=== PATIENT | male | born 1945 | race Caucasian/White ===

== ENCOUNTER 2017-05-29 11:58 | Inpatient (IN) ==
--- NOTE | 2017-05-29 12:20 | Emergency Department Note ---
Disposition Clinical Impression: Cellulitis Qualifiers: Site of cellulitis: extremity Site of cellulitis of extremity: upper extremity Laterality: left Qualified Code(s): L03.114 - Cellulitis of left upper limb Abscess of skin or subcutaneous tissue Qualifiers: Site of cutaneous abscess: extremity Site of cutaneous abscess of extremity: hand Laterality: left Qualified Code(s): L02.512 - Cutaneous abscess of left hand Disposition: Admitted As Inpatient Condition: Good Referrals: Ky Cisneros MD [Primary Care Provider] - Forms: ED Satisfaction Letter Time of Disposition: 14:41 Skin/Abscess/FB HPI Chief complaint: ED Skin/Abscess/Foreign Body Stated complaint: finger wound Time Seen by Provider: 05/29/17 12:06 Source: patient Limitations: no limitations Nursing Notes Reviewed: Yes Vital Signs Reviewed: Yes HPI Narrative: Mr. Barton, a 72yo male, presents from home for evaluation of worsening infection of his left index finger. Sometime last week, he was reportedly bitten by a spider over the MCP knuckle of his left index finger. 5 days ago, he presented to his primary care physician who prescribed him by mouth cephalexin and Bactrim. The swelling of the left MCP is surrounding erythema has become progressively worse and now includes the dorsum of his hand. 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 PMH: Diabetes, hypertension, hyperlipidemia No current steroid or recent steroid use. ROS: Positive: As above Negative: Fever, chills, nausea, vomiting, pain with left wrist movement Home Medications Medication Instructions Recorded Confirmed Amlodipine Besylate 2.5 mg PO DAILY 05/29/17 05/29/17 Enalapril Maleate [Vasotec] 20 mg PO DAILY 05/29/17 05/29/17 Gabapentin [Neurontin] 1,200 mg PO TID 05/29/17 05/29/17 Meloxicam [Meloxicam] 15 mg PO DAILY 05/29/17 05/29/17 Metformin HCl [Glucophage] 1,000 mg PO BID 05/29/17 05/29/17 OxyCODONE/APAP 10/325 [Percocet 1 tab PO Q6H PRN 05/29/17 05/29/17 10/325 MG] Rosuvastatin Calcium [Crestor] 10 mg PO DAILY 05/29/17 05/29/17 Trazodone HCl 200 mg PO HS 05/29/17 05/29/17 Allergies Allergy/AdvReac Type Severity Reaction Status Date / Time No Known Allergies Allergy Verified 05/29/17 12:00 All systems ED: reviewed and negative except as stated. Review of Systems: As Per HPI Past Medical History - Past Medical History Medical history: Reports: diabetes, hyperlipidemia, hypertension, kidney stones Surgical history: Reports: non-contributory Psychiatric history: Reports: no psych history - Social History Smoking Status: Current every day smoker Smokeless Tobacco Status: No Alcohol use: Reports: occasionally Drug use: Reports: none Physical Exam Vital Signs Reviewed General: Patient is alert, oriented, and in no acute distress. HEENT: No facial asymmetry. Head is normocephalic and atraumatic. PERRLA, EOMI. oral mucosa moist. Trachea midline. Cardiovascular: Heart regular rate and rhythm without clicks, rubs, gallops, or murmurs. No JVD. PMI nondisplaced. Bilateral radial pulses 2/4 and equal. Respiratory: Symmetric chest rise with good respiratory effort. Bilateral breath sounds are clear without wheezing, crackles, or rhonchi. Abdomen: Obese. Bowel sounds present normoactive x-4 quadrants. Abdomen is soft, nondistended, and nontender. Musculoskeletal: Spontaneously moving all extremities. Pain with flexion of left index finger. Pain in dorsum of left hand with flexion of left #5, 4, 3 fingers. Neuro: Alert and oriented 4 Sensation light touch intact. Skin: Erythema and swelling to dorsum of left hand and extending distally along the left index finger with a sharp over the first MCP. No current drainage. Psych: Patient's affect is appropriate for situation. - General Limitations: no limitations General appearance: alert, in no apparent distress Course Course Narrative: Will x-ray left hand looking frosty myelitis. Will ultrasound cellulitic area looking for a drainable abscess. Anticipate admission for IV antibiotics and consultation with orthopedic hand surgery. Blood cultures obtained. Aerobic and anaerobic cultures obtained from abscess drainage. Will place patient on empiric vancomycin and admitted. I discussed the patient with the admitting hospitalist agrees to accept the patient continued evaluation and management. Discussed the patient with on-call orthopedics was in agreement with the current plan of care. Will attempt to pack the patient's abscess; otherwise he has no additional questions or concerns at this time. Hand X-Ray 05/29/17 12:17 IMPRESSION: Soft-tissue swelling with no acute or focal bony abnormality seen. D/ / Swathi Pugh Cha, MD / Swathi Pugh Cha, MD Interpreting Provider: Swathi Pugh Cha, MD Vital Signs Temperature 97.5 F L 05/29/17 12:00 Pulse Rate 65 05/29/17 12:00 Respiratory Rate 15 05/29/17 12:00 Blood Pressure 138/82 05/29/17 12:00 O2 Sat by Pulse Oximetry 97 05/29/17 12:00 Temperature 97.5 F L 05/29/17 12:00 Pulse Rate 65 05/29/17 12:00 Respiratory Rate 15 05/29/17 12:00 Blood Pressure 138/82 05/29/17 12:00 O2 Sat by Pulse Oximetry 97 05/29/17 12:00 Oxygen Delivery Oxygen Delivery Room Air Skin/Abscess/Foreign Body - Lab Data Result diagrams: 05/29/17 12:57 05/29/17 12:57 Lab Results 05/29/17 05/29/17 Range/Units 12:57 12:57 WBC 10.6 (4.3-11.1) K/mcL RBC 4.38 (4.19-5.50) M/mcL Hgb 13.2 (12.9-16.9) g/dL Hct 40.7 (37.5-50.1) % MCV 92.9 (83.0-100.0) fL MCH 30.1 (28.0-33.3) pg MCHC 32.4 (31.6-35.5) g/dL RDW 13.5 (11.5-14.5) % Plt Count 289 (140-400) K/mcL MPV 9.9 (9.4-12.4) fL Immature Gran % 0.5 (0-4) % Seg Neutrophils % 66.2 % Lymphocytes % 21.4 % Monocytes % 8.7 % Eosinophils % 2.5 % Basophils % 0.7 % Neutrophils # 7.0 (1.6-8.9) K/mcL Lymphocytes # 2.3 (0.6-4.6) K/mcL Monocytes # 0.9 (0.0-1.3) K/mcL Eosinophils # 0.3 (0.0-0.6) K/mcL Basophils # 0.1 (0.0-0.2) K/mcL Sodium 135 L (136-145) mEq/L Potassium 4.9 (3.5-5.1) mEq/L Chloride 105 (98-107) mEq/L Carbon Dioxide 25 (23-29) mEq/L BUN 13 (8-23) mg/dL Creatinine 0.81 (0.70-1.30) mg/dL Est GFR ( Amer) > 60 (> 60) Est GFR (Non-Af Amer) > 60 (> 60) BUN/Creatinine Ratio 16 (6-26) Glucose 78 (70-105) mg/dL Calculated Osmolality 279 L (280-300) Calcium 8.8 (8.6-10.3) mg/dL Attestation Statement - Attestation Attestation: Patient was seen with resident physician. I reviewed the history, physical, assessment and plan, and agree with the findings. I also personally evaluated this patient and had [id number] time with this patient. 72-year-old male presents to emergency department with spider bite. Patient states he got bit on his left index finger by a spider approximately one week ago. He is seen by his primary care physician and started on Keflex and Bactrim. He said he has not gotten better in fact is progressively got worse. He now has increasing erythema and pain on that finger. He has difficulty moving it secondary to pain. He also relates a history of having had a MRSA infection on the same hand 20 years ago that required surgical intervention and IV antibiotics. He says he is okay if he needs to stay in the hospital to have similar therapies. Denies other complaints or injuries. On exam vital signs were stable. ENT is unremarkable. Heart normal. Lungs normal. Chest wall stable. Abdomen is soft and nontender. Extremities unremarkable except for the left index finger. Lateral relief by the MCP joint he has a developing abscess and cellulitis. There is a crusted area centrally. Which appears to be draining slightly. There is pain with active and passive range of motion. Neurologically intact. Skin rashes noted. Psych normal. ED course originally thought about changing his antibiotic and draining the wound. However with his history of MRSA and surgical intervention, and the speed at which this is spreading in addition to the fact that he failed dual outpatient antibiotic therapy, we opted to do an I& D, send cultures, start him on vancomycin, and get him admitted to the hospital for further intervention as indicated. Patient was comfortable with the plan. Hemodynamically he was stable. We spoke with the hospitalist service to arrange admission. Orthopedics was also consulted. Agree with resident physician assessment and plan.
[2017-05-29 13:06] LABS: Basophils # 0.1 K/mcL (0.0-0.2); Basophils % 0.7 %; Eosinophils # 0.3 K/mcL (0.0-0.6); Eosinophils % 2.5 %; Hematocrit 40.7 % (37.5-50.1); Hemoglobin 13.2 g/dL (12.9-16.9); Immature Granulocytes % 0.5 % (0-4); Lymphocytes # 2.3 K/mcL (0.6-4.6); Lymphocytes % 21.4 %; Mean Corpuscular HGB Conc 32.4 g/dL (31.6-35.5); Mean Corpuscular Hemoglobin 30.1 pg (28.0-33.3); Mean Corpuscular Volume 92.9 fL (83.0-100.0); Mean Platelet Volume 9.9 fL (9.4-12.4); Monocytes # 0.9 K/mcL (0.0-1.3); Monocytes % 8.7 %; Platelet Count 289 K/mcL (140-400); Red Blood Count 4.38 M/mcL (4.19-5.50); Red Cell Distribution Width 13.5 % (11.5-14.5); Segmented Neutrophils % 66.2 %
[2017-05-29] MEDS ORDERED: Vancomycin 1,500 MG in D5% in Water 250 ML IVPB ONE (13:15)
[2017-05-29 13:22] LABS: BUN/Creatinine Ratio 16 (6-26); Blood Urea Nitrogen 13 mg/dL (8-23); Calcium 8.8 mg/dL (8.6-10.3); Carbon Dioxide 25 mEq/L (23-29); Chloride 105 mEq/L (98-107); Glucose 78 mg/dL (70-105); Osmolality,Calculated 279 (280-300); Potassium 4.9 mEq/L (3.5-5.1); Sodium 135 mEq/L (136-145); eGFR For African Americans > 60 (> 60); eGFR For Non-African Americans > 60 (> 60)
[2017-05-29] MEDS ORDERED: Acetaminophen 325 MG TABLET PO PRN (15:46)
[2017-05-29] MEDS ORDERED: *HR* Morphine 2 MG/ML SYRINGE IVP PRN (15:46)
[2017-05-29] MEDS ORDERED: Naloxone 0.4 MG/ML INJ IVP PRN (15:46)
[2017-05-29] MEDS ORDERED: Ondansetron 4 MG/2 ML VIAL IVP PRN (15:46)
[2017-05-29] MEDS ORDERED: *HR* Dextrose 50 % in Water (Syg) 50 ML SYRINGE IVP PRN (15:48)
[2017-05-29] MEDS ORDERED: Dextrose Gel 15 GM/37.5 ML TUBE PO PRN ×2 (15:48)
[2017-05-29] MEDS ORDERED: D5% in Water 1,000 ML IVC PRN (15:48)
--- NOTE | 2017-05-29 15:54 | Internal Med History&Physical ---
Date of Encounter: 05/29/17 Time of Encounter: 15:51 Assessment and Plan (1) Cellulitis Current visit: Yes Status: Acute continue Vanco hand Xray with no bone abnormalities. Monitor Vanco trough Ortho eval for possible I and D Hemodynamically stable Qualifiers: Site of cellulitis: extremity Site of cellulitis of extremity: upper extremity Laterality: left Qualified Code(s): L03.114 - Cellulitis of left upper limb (2) HTN (hypertension) Current visit: Yes Status: Chronic continue home meds Qualifiers: Hypertension type: essential hypertension Qualified Code(s): I10 - Essential (primary) hypertension (3) Diabetes mellitus Current visit: Yes Status: Chronic Hb A1C am AD diet FS ACHS Sliding scale insulin Hold metformin Qualifiers: Diabetes mellitus type: type 2 Diabetes mellitus complication status: without complication 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 Qualified Code(s): E11.9 - Type 2 diabetes mellitus without complications (4) DJD (degenerative joint disease) Current visit: Yes Status: Chronic continue home meds Qualifiers: Osteoarthritis location: spine Spinal region: unspecified Spinal osteoarthritis complication: unspecified spinal osteoarthritis Qualified Code( s): M47.9 - Spondylosis, unspecified (5) Tobacco abuse Current visit: Yes Status: Chronic declined cessation counselling, declines NRT, states he will go out to his car to smoke when he feels like Internal Medicine - H&P: HPI Chief complaint: Left hand and index finger infection Admitted From: Home Plans for Post Hospital Care: Home History of present illness: Mr. Barton is a 72 year old male with DM, HTN, HLD, Tobacco abuse who presented to the ER with Left hand and finger redness and swwlling, symptoms started 5 days ago and has not responded to outpatient Keflex and Bactrim., symptoms continued to worsen, promtping presentation to the ER No fever or chills, patient states he has a hx of staph infection He denies chest/cardiac//abdomen/neuro symptoms. NO led edema. He is not septic He is admitted inpatient for failure of outpatient therapy and need fo possible incision and drainage and IV antibiot therapy Past Med Surg Social Fam HX - Past Medical History Medical history: diabetes, hyperlipidemia, hypertension, kidney stones Psychiatric history: no psych history - Past Surgical History Surgical History: non-contributory - Social History Smoking Status: Current every day smoker Smokeless Tobacco Status: No Alcohol use: occasionally Drug use: none Internal Medicine - H&P: Meds Amlodipine Besylate 2.5 mg PO DAILY 05/29/17 [History] Enalapril Maleate [Vasotec] 20 mg PO DAILY 05/29/17 [History] Gabapentin [Neurontin] 1,200 mg PO TID 05/29/17 [History] Meloxicam [Meloxicam] 15 mg PO DAILY 05/29/17 [History] Metformin HCl [Glucophage] 1,000 mg PO BID 05/29/17 [History] OxyCODONE/APAP 10/325 [Percocet 10/325 MG] 1 tab PO Q6H PRN 05/29/17 [History] Rosuvastatin Calcium [Crestor] 10 mg PO DAILY 05/29/17 [History] Trazodone HCl 200 mg PO HS 05/29/17 [History] 3 Allergy/AdvReac Type Severity Reaction Status Date / Time No Known Allergies Allergy Verified 05/29/17 12:00 All Systems PM: A 10-system review of systems was performed and is negative for pertinent findings except as documented above in the HPI. - Constitutional Constitutional: as per HPI - EENT Eyes: as per HPI Ears: as per HPI Nose, mouth and throat: as per HPI - Cardiovascular Cardiovascular ROS IM: as per HPI - Respiratory Respiratory: as per HPI - Gastrointestinal Gastrointestinal: as per HPI - Musculoskeletal Musculoskeletal ROS IM: as per HPI - Integumentary Integumentary IM: as per HPI - Neurological Neurological ROS: as per HPI - Hematologic/Lymphatic Hematologic/Lymphatic: as per HPI - Constitutional Vitals: Temp Pulse Resp BP Pulse Ox 97.5 F L 62 18 126/88 100 05/29/17 12:00 05/29/17 15:35 05/29/17 15:35 05/29/17 15:35 05/29/17 15:35 General appearance: Present: A&O X 3, no acute distress, obese - Head Head exam: Present: atraumatic, normocephalic - Eye Eye exam: Present: PERRL, conjuntiva pink, sclera anicteric Pupils: Present: PERRL - Neck Neck exam general surgery: Present: supple, trachea midline. Absent: lymphadenopathy - Respiratory Respiratory exam: Present: CTAB. Absent: accessory muscle use, rales, rhonchi, wheezes - Cardiovascular Cardiovascular exam: Present: RRR, +S1, +S2. Absent: diastolic murmur, gallop, rubs, systolic murmur - GI/Abdominal GI/Abdominal exam: Present: normal bowel sounds, soft, no peritoneal signs. Absent: distended, tenderness - Extremities Exam Additional comments: Left index finger with a punctum on the medial surface with no visible discharge , index finger is swollen, red and tender and this involevs the rest of the left hand up to the mid dorsal surface, no visible collection. the distal index finger is neurovascularly intact, radial pulse is present - Neurological Exam Neurological exam: Present: alert, CN II-XII intact, oriented X3, no focal deficits. Absent: pronater drift, facial droop, speech deficit - Skin Skin exam: Present: dry, intact Internal Med - H&P Results - Labs CBC & Chem 7: 05/29/17 12:57 05/29/17 12:57
[2017-05-29] MEDS: *HR* HYDROcodone/Acet 5/325 mg TABLET PO PRN ×2 (18:47→22:47)
[2017-05-29] MEDS: Insulin LISPRO 300 UNITS/3 ML VIAL SQ SCH ×2 (19:07→22:16)
--- NOTE | 2017-05-29 19:42 | Orthopedic Consult Note ---
Date of Encounter: 05/29/17 Time of Encounter: 19:39 Assessment and Plan (1) Abscess of skin or subcutaneous tissue Current Visit: Yes Status: Acute I did discuss the diagnosis in detail the patient. He has a left index finger infection. There has been an I&D done by the emergency department. The patient is admitted and on IV antibiotics. My recommendation is to observe overnight on the IV antibiotics and if there remains any significant drainage I will extend the incision in each direction slightly and pack. Continue elevation and motion exercises. We will see tomorrow morning to reevaluate. Qualifiers: Site of cutaneous abscess: extremity Site of cutaneous abscess of extremity : hand Laterality: left Qualified Code(s): L02.512 - Cutaneous abscess of left hand History of Present Illness HPI: Mr. Barton is a 72 year old male who is admitted to the hospitalist for left index finger infection. He says he is bitten by a spider about a week ago and went to his primary care doctor and Lan[facility] on Wednesday and was put on an antibiotic. After following up with him on Wednesday antibiotic was doubled and he is told to go to the emergency department if it worsened. Due to persistent and worsening symptoms he went to the emergency department today where emergency department performed a small I&D of the left index finger. After that he was admitted to the hospitalist and orthopedics was consulted to assist in evaluation and management of the patient. On my evaluation the patient complains of sharp isolated pain which also aches localized to the dorsal and radial aspect of the left index finger. No other associated signs or symptoms. Pain is worse with movement of the digit and better with rest. No other modifying factors. Past Med Surg Social Fam HX - Past Medical History Medical history: diabetes, hyperlipidemia, hypertension, kidney stones Psychiatric history: no psych history - Past Surgical History Surgical History: non-contributory, appendectomy - Social History Smoking Status: Current every day smoker Packs per day: 2 Smokeless Tobacco Status: No Alcohol use: occasionally Drug use: none Medications and Allergies Amlodipine Besylate 2.5 mg PO DAILY 05/29/17 [History] Enalapril Maleate [Vasotec] 20 mg PO DAILY 05/29/17 [History] Gabapentin [Neurontin] 1,200 mg PO TID 05/29/17 [History] Meloxicam [Meloxicam] 15 mg PO DAILY 05/29/17 [History] Metformin HCl [Glucophage] 1,000 mg PO BID 05/29/17 [History] OxyCODONE/APAP 10/325 [Percocet 10/325 MG] 1 tab PO Q6H PRN 05/29/17 [History] Rosuvastatin Calcium [Crestor] 10 mg PO DAILY 05/29/17 [History] Trazodone HCl 200 mg PO HS 05/29/17 [History] 3 Allergy/AdvReac Type Severity Reaction Status Date / Time No Known Allergies Allergy Verified 05/29/17 12:00 All Systems Reviewed: A 10-system review of systems was performed and is negative for pertinent findings except as documented above in the HPI. Physical Exam - Constitutional Vitals: Temp Pulse Resp BP Pulse Ox 98.2 F 65 17 119/54 96 05/29/17 16:55 05/29/17 16:55 05/29/17 16:55 05/29/17 16:55 05/29/17 16:55 CONSTITUTIONAL -Vitals reviewed -The patient is well developed, well nourished, well groomed PSYCHIATRIC -Fully alert and oriented -Pleasant mood LEFT UPPER EXTREMITY Inspection shows that the skin and soft tissue envelope are intact with the exception of a 3 mm I&D site over the dorsal and radial aspect of the left index finger over the proximal phalanx. Associated moderate swelling. Cellulitis in this area extending about 2 cm in each direction. Expected tenderness to palpation in this area. No other lesions noted. He can grossly flex and extend the digits with some limitation due to pain and swelling. The patient can actively flex and extend all digits, extend the thumb, cross the index and long fingers, make an okay sign, and oppose the thumb. The fingertips are all grossly sensate and well-perfused, and the radial artery pulse is 2+. Diagnostic Imaging: I did personally review and interpret x-rays of left hand which show soft tissue swelling about the index finger without bony involvement. Results - Labs Result Diagrams: 05/29/17 12:57 05/29/17 12:57 Labs: Abnormal lab results Sodium 135 mEq/L (136-145) L 05/29/17 12:57 Calculated Osmolality 279 (280-300) L 05/29/17 12:57 All other labs normal. Consult Discharge Plan - Plan Referrals: Ky Cisneros MD [Primary Care Provider] -
[2017-05-29] MEDS: traZODone 50 MG TABLET PO SCH (22:15)
[2017-05-29] MEDS: *HR* OxyCODONE/APAP 10/325 TABLET PO PRN (23:35)
[2017-05-30] MEDS: Vancomycin 1,500 MG in D5% in Water 250 ML IVPB SCH ×2 (01:19→14:40)
[2017-05-30] MEDS: *HR* Enoxaparin 40 MG/0.4 ML SYRINGE SQ SCH (06:17)
[2017-05-30] MEDS: *HR* OxyCODONE/APAP 10/325 TABLET PO PRN ×2 (06:19→21:31)
[2017-05-30] MEDS: Gabapentin 400 MG CAPSULE PO SCH ×3 (08:29→17:34)
[2017-05-30] MEDS: Aspirin 81 MG TAB.CHEW PO SCH (08:30)
[2017-05-30] MEDS: Insulin LISPRO 300 UNITS/3 ML VIAL SQ SCH ×4 (08:30→21:26)
[2017-05-30] MEDS ORDERED: amLODIPine 5 MG TABLET PO SCH (09:00)
[2017-05-30] MEDS ORDERED: Lisinopril 20 MG TABLET PO SCH (09:00)
[2017-05-30 09:13] LABS: Basophils # 0.1 K/mcL (0.0-0.2); Basophils % 0.7 %; Eosinophils # 0.3 K/mcL (0.0-0.6); Eosinophils % 3.4 %; Hematocrit 44.2 % (37.5-50.1); Hemoglobin 14.1 g/dL (12.9-16.9); Immature Granulocytes % 0.5 % (0-4); Lymphocytes # 1.8 K/mcL (0.6-4.6); Lymphocytes % 22.3 %; Mean Corpuscular HGB Conc 31.9 g/dL (31.6-35.5); Mean Corpuscular Hemoglobin 29.7 pg (28.0-33.3); Mean Corpuscular Volume 93.2 fL (83.0-100.0); Mean Platelet Volume 9.9 fL (9.4-12.4); Monocytes # 0.8 K/mcL (0.0-1.3); Monocytes % 10.5 %; Platelet Count 302 K/mcL (140-400); Red Blood Count 4.74 M/mcL (4.19-5.50); Red Cell Distribution Width 13.4 % (11.5-14.5); Segmented Neutrophils % 62.6 %
[2017-05-30 09:16] LABS: Hemoglobin A1C 6.4 %
[2017-05-30 09:23] LABS: BUN/Creatinine Ratio 13 (6-26); Blood Urea Nitrogen 11 mg/dL (8-23); Calcium 9.2 mg/dL (8.6-10.3); Carbon Dioxide 25 mEq/L (23-29); Chloride 104 mEq/L (98-107); Glucose 133 mg/dL (70-105); Osmolality,Calculated 283 (280-300); Potassium 4.6 mEq/L (3.5-5.1); Sodium 136 mEq/L (136-145); eGFR For African Americans > 60 (> 60); eGFR For Non-African Americans > 60 (> 60)
[2017-05-30] MEDS ORDERED: Lidocaine/EPI 1:100k 1% 50 ML VIAL INFILT ONE (10:52)
--- NOTE | 2017-05-30 11:57 | Internal Med Progress Note ---
Date of Encounter: 05/30/17 Time of Encounter: 11:56 - Subjective Interval history: History of Present Illness The patient is a 72 year old man admitted with an infection of the left index finger. He believes he was is bitten by a spider about a week ago but did not actually see a spider. He doesnt recall injury to his finger but noticed what he describes as a small puncture wound with surrounding errythema. He initially saw his PCP and was started on an oral antibiotic. Two days later the antibiotic spectrum was expanded due to worsening swelling and erythema. When the infection failed to respong he came to the ER where an I&D was performed. He was admitted to the hospitalist service and an orthopedic consult was ordered. Pus was expressed from the wound and sent for culture and he was started on Vancomycin. A more extensive &D procedure is planned for later today. Assessment and Plan Abscess of skin or subcutaneous tissue Continue Vancomycin I&D palanned for later today Culture and sensitivity reports pending - Constitutional Vitals: Temp Pulse Resp BP Pulse Ox 97.7 F 53 16 144/87 96 05/30/17 06:42 05/30/17 06:42 05/30/17 06:42 05/30/17 06:42 05/30/17 06:42 General appearance: Present: mild distress, A&O X 3, no acute distress - Head Head exam: Present: atraumatic, normocephalic - Eye Eye exam: Present: EOMI, PERRL, conjuntiva pink, sclera anicteric - Neck Neck exam general surgery: Present: full ROM, supple, trachea midline. Absent: tenderness, nuchal rigidity, thyromegaly - Respiratory Respiratory exam: Present: CTAB. Absent: decreased breath sounds, rales, respiratory distress, rhonchi, stridor, wheezes - Cardiovascular Cardiovascular exam: Present: RRR, +S1, +S2. Absent: clicks, gallop, irregular rhythm, JVD, systolic murmur - GI/Abdominal GI/Abdominal exam: Present: normal bowel sounds, soft, no peritoneal signs - Extremities Exam Extremities exam: Present: warm - Psychiatric Psychiatric exam: Present: normal affect, normal mood - Skin Skin exam: Present: dry, erythema, warm Internal Medicine: Result - Labs CBC & Chem 7: 05/30/17 08:43 05/30/17 08:43 Labs: Short CBC 05/30/17 Range/Units 08:43 WBC 8.0 (4.3-11.1) K/mcL Hgb 14.1 (12.9-16.9) g/dL Hct 44.2 (37.5-50.1) % Plt Count 302 (140-400) K/mcL Neutrophils # 5.0 (1.6-8.9) K/mcL BMP 05/30/17 08:43 Sodium 136 Potassium 4.6 Chloride 104 Carbon Dioxide 25 BUN 11 Creatinine 0.83 Glucose 133 H Calcium 9.2 Consult Discharge Plan - Plan Referrals: Ky Cisneros MD [Primary Care Provider] -
--- NOTE | 2017-05-30 11:57 | Orthopedics Progress Note ---
Date of Encounter: 05/30/17 Time of Encounter: 11:56 - Assessment and Plan (1) Abscess of skin or subcutaneous tissue Current Visit: Yes Status: Acute I did discuss the diagnosis in detail the patient. He has a left index finger infection. There has been an I&D done by the emergency department. The patient is admitted and on IV antibiotics. My recommendation is to observe overnight on the IV antibiotics and if there remains any significant drainage I will extend the incision in each direction slightly and pack. Continue elevation and motion exercises. We will see tomorrow morning to reevaluate. Qualifiers: Site of cutaneous abscess: extremity Site of cutaneous abscess of extremity : hand Laterality: left Qualified Code(s): L02.512 - Cutaneous abscess of left hand Subjective Interval history: S: Resting in bed comfortably. Mild to moderate pain to the left index finger, similar to yesterday. O: Afebrile and vital signs are stable The left index finger is evaluated and there is continued purulent drainage from the I&D site Moderate cellulitis emanating proximally into the dorsum of the hand Mild fluctuance in this area. A: Left index finger abscess with spread into the dorsal hand P: We will plan on bedside I&D to widen the I&D site of the left index finger and make a secondary incision in the left hand dorsum. Objective Vital signs: Vital Signs Temp Pulse Resp BP Pulse Ox 05/30/17 06:42 97.7 F 53 16 144/87 96 05/30/17 00:32 98.2 F 68 15 130/72 100 05/29/17 20:43 97.9 F 59 17 148/84 92 05/29/17 16:55 98.2 F 65 17 119/54 96 05/29/17 15:35 62 18 126/88 100 Intake and Output 05/29/17 05/30/17 05/30/17 23:59 07:59 15:59 Intake Total 240 / 240 Balance 240 / 240 Intake: Oral 240 / 240 Other: Meal Dinner Percent of Meal Consumed 100% Blood Glucose* 103 - Labs CBC & BMP: 05/30/17 08:43 05/30/17 08:43 Labs: Abnormal lab results Glucose 133 mg/dL (70-105) H 05/30/17 08:43 POC Glucose 103 (58-89) H 05/30/17 06:42 Hemoglobin A1c 6.4 % (-5.6) H 05/30/17 08:43 Consult Discharge Plan - Plan Referrals: Ky Cisneros MD [Primary Care Provider] -
[2017-05-30] MEDS: amLODIPine 5 MG TABLET PO SCH (17:33)
[2017-05-30] MEDS: Lisinopril 20 MG TABLET PO SCH (17:33)
--- NOTE | 2017-05-30 20:45 | Event Note ---
Date of Encounter: 05/30/17 Time of Encounter: 19:30 After informed consent was obtained I did anesthetize the left hand and index finger with 20 mL of 1% lidocaine with epinephrine under sterile technique. I then created a sterile field involving the left hand and index finger. I made a longitudinal incision along the hand dorsum in the area of maximal swelling and redness. I did tunnel down to the deep communicating with the index finger abscess however I was not able to obtain any gross purulence. I then extended the I&D incision proximally about a centimeter and spread the soft tissues undermining the skin and I was not able to obtain any further purulent material. After copious irrigation and packed the wounds open. I placed a sterile dressing. He tolerated this well.
[2017-05-31] MEDS: traZODone 50 MG TABLET PO SCH ×2 (01:30→22:09)
[2017-05-31] MEDS: Vancomycin 1,500 MG in D5% in Water 250 ML IVPB SCH ×2 (01:54→13:56)
[2017-05-31] MEDS: *HR* Enoxaparin 40 MG/0.4 ML SYRINGE SQ SCH (05:26)
[2017-05-31 07:20] LABS: Basophils # 0.1 K/mcL (0.0-0.2); Basophils % 0.9 %; Eosinophils # 0.3 K/mcL (0.0-0.6); Eosinophils % 3.2 %; Hematocrit 39.9 % (37.5-50.1); Immature Granulocytes % 0.7 % (0-4); Lymphocytes # 2.3 K/mcL (0.6-4.6); Lymphocytes % 26.4 %; Mean Corpuscular HGB Conc 32.6 g/dL (31.6-35.5); Mean Corpuscular Hemoglobin 30.3 pg (28.0-33.3); Mean Platelet Volume 9.7 fL (9.4-12.4); Monocytes # 0.9 K/mcL (0.0-1.3); Monocytes % 10.7 %; Platelet Count 298 K/mcL (140-400); Red Blood Count 4.29 M/mcL (4.19-5.50); Red Cell Distribution Width 13.3 % (11.5-14.5); Segmented Neutrophils % 58.1 %
[2017-05-31] MEDS: Insulin LISPRO 300 UNITS/3 ML VIAL SQ SCH ×4 (09:18→20:22)
[2017-05-31] MEDS: Gabapentin 400 MG CAPSULE PO SCH ×3 (09:45→17:28)
[2017-05-31] MEDS: Aspirin 81 MG TAB.CHEW PO SCH (09:46)
[2017-05-31] MEDS: *HR* OxyCODONE/APAP 10/325 TABLET PO PRN ×2 (09:46→17:30)
[2017-05-31 09:52] LABS: BUN/Creatinine Ratio 24 (6-26); Blood Urea Nitrogen 18 mg/dL (8-23); Calcium 8.9 mg/dL (8.6-10.3); Carbon Dioxide 26 mEq/L (23-29); Chloride 107 mEq/L (98-107); Glucose 123 mg/dL (70-105); Osmolality,Calculated 287 (280-300); Potassium 4.5 mEq/L (3.5-5.1); Sodium 137 mEq/L (136-145); eGFR For African Americans > 60 (> 60); eGFR For Non-African Americans > 60 (> 60)
--- NOTE | 2017-05-31 10:15 | Orthopedics Progress Note ---
Date of Encounter: 05/31/17 Time of Encounter: 07:30 - Assessment and Plan (1) Abscess of skin or subcutaneous tissue Current Visit: Yes Status: Acute I did discuss the diagnosis in detail the patient. He has a left index finger infection. There has been an I&D done by the emergency department. The patient is admitted and on IV antibiotics. My recommendation is to observe overnight on the IV antibiotics and if there remains any significant drainage I will extend the incision in each direction slightly and pack. Continue elevation and motion exercises. We will see tomorrow morning to reevaluate. Qualifiers: Site of cutaneous abscess: extremity Site of cutaneous abscess of extremity : hand Laterality: left Qualified Code(s): L02.512 - Cutaneous abscess of left hand Subjective Interval history: S: Resting in bed comfortably. Mild to moderate pain to the left index finger, similar to yesterday. O: Afebrile and vital signs are stable Minimal expressible purulence from the 2 I&D sites, improved from yesterday Mild cellulitis emanating proximally into the dorsum of the hand Mild fluctuance in this area. A: Left index finger abscess with spread into the dorsal hand P: The patient has had improvement, however I would recommend at least 1 more day of antibiotics in house. I will see the patient tomorrow for clinical reevaluation. Elevation and motion exercises in the meantime. Objective Vital signs: Vital Signs Temp Pulse Resp BP Pulse Ox 05/31/17 07:01 97.7 F 54 20 131/72 96 05/30/17 21:21 98.6 F 59 18 116/67 95 05/30/17 16:55 98.3 F 56 16 138/72 99 05/30/17 12:10 98.0 F 50 18 146/79 98 Intake and Output 05/30/17 05/31/17 05/31/17 23:59 07:59 15:59 Intake Total 730 / 730 250 / 250 240 / 240 Balance 730 / 730 250 / 250 240 / 240 Intake: IV Fluids 250 / 250 250 / 250 Vancocin 1,500 MG In Dextrose 5 250 / 250 250 / 250 % 250 ML @ 167 mls/hr IVPB Q12H ZI Rx#:[id number] Oral 480 / 480 240 / 240 Other: Meal Dinner Breakfast Percent of Meal Consumed 100% 100% # Voids 1 Blood Glucose* 111 126 - Labs CBC & BMP: 05/31/17 06:51 05/31/17 06:51 Labs: Abnormal lab results Glucose 123 mg/dL (70-105) H 05/31/17 06:51 POC Glucose 126 (58-89) H 05/31/17 07:48 Hemoglobin A1c 6.4 % (-5.6) H 05/30/17 08:43 Consult Discharge Plan - Plan Referrals: Ky Cisneros MD [Primary Care Provider] -
[2017-05-31] MEDS ORDERED: *HR* OxyCODONE Immed Rel 5 MG TABLET PO PRN (10:38)
[2017-05-31] MEDS: amLODIPine 5 MG TABLET PO SCH (17:29)
[2017-05-31] MEDS: Lisinopril 20 MG TABLET PO SCH (17:30)
--- NOTE | 2017-05-31 20:37 | Internal Med Progress Note ---
Date of Encounter: 05/31/17 Time of Encounter: 17:30 - Subjective Interval history: History of Present Illness The patient is a 72 year old man admitted with an infection of the left index finger. He believes he was is bitten by a spider about a week ago but did not actually see a spider. He doesnt recall injury to his finger but noticed what he describes as a small puncture wound with surrounding errythema. He initially saw his PCP and was started on an oral antibiotic. Two days later the antibiotic spectrum was expanded due to worsening swelling and erythema. When the infection failed to respong he came to the ER where an I&D was performed. He was admitted to the hospitalist service and an orthopedic consult was ordered. Pus was expressed from the wound and sent for culture and he was started on Vancomycin. A more extensive &D procedure was performed today and reevaluation by surgery tomorrow. Physical Exam: General appearance: Present: mild distress, A&O X 3, no acute distress - Head Head exam: Present: atraumatic, normocephalic - Eye Eye exam: Present: EOMI, PERRL, conjuntiva pink, sclera anicteric - Neck Neck exam general surgery: Present: full ROM, supple, trachea midline. Absent: tenderness, nuchal rigidity, thyromegaly - Respiratory Respiratory exam: Present: CTAB. Absent: decreased breath sounds, rales, respiratory distress, rhonchi, stridor, wheezes - Cardiovascular Cardiovascular exam: Present: RRR, +S1, +S2. Absent: clicks, gallop, irregular rhythm, JVD, systolic murmur - GI/Abdominal GI/Abdominal exam: Present: normal bowel sounds, soft, no peritoneal signs - Extremities Exam Extremities exam: Present: warm - Psychiatric Psychiatric exam: Present: normal affect, normal mood - Skin Skin exam: Present: dry, erythema, warm Assessment and Plan Abscess of skin or subcutaneous tissue MRSA postitive cultures. Continue Vancomycin I&D palanned for later today Culture and sensitivity reports pending Disposition: Possibly tomorrow, but abx selection not finalized. On Vanc now. Cultures sensitve to Doxy and Bactrim but he failed OP bactrim. We checked insurance coverage for Zyvox today. Possibly PICC and OP Vanc Surgery may want further I&D if needed following reevaluation tomorrow. - Constitutional Vitals: Temp Pulse Resp BP Pulse Ox 97.9 F 62 20 115/71 96 05/31/17 11:36 05/31/17 11:36 05/31/17 11:36 05/31/17 11:36 05/31/17 11:36 General appearance: Present: mild distress, A&O X 3, no acute distress Internal Medicine: Result - Labs CBC & Chem 7: 05/31/17 06:51 05/31/17 06:51 Labs: Short CBC 05/31/17 Range/Units 06:51 WBC 8.5 (4.3-11.1) K/mcL Hgb 13.0 (12.9-16.9) g/dL Hct 39.9 (37.5-50.1) % Plt Count 298 (140-400) K/mcL Neutrophils # 5.0 (1.6-8.9) K/mcL BMP 05/31/17 06:51 Sodium 137 Potassium 4.5 Chloride 107 Carbon Dioxide 26 BUN 18 Creatinine 0.75 Glucose 123 H Calcium 8.9 Consult Discharge Plan - Plan Referrals: Ky Cisneros MD [Primary Care Provider] -
[2017-06-01] MEDS: Vancomycin 1,500 MG in D5% in Water 250 ML IVPB SCH ×2 (02:39→13:53)
[2017-06-01] MEDS: *HR* OxyCODONE/APAP 10/325 TABLET PO PRN ×3 (04:07→15:45)
[2017-06-01] MEDS: *HR* Enoxaparin 40 MG/0.4 ML SYRINGE SQ SCH (05:15)
[2017-06-01 07:30] LABS: Basophils # 0.1 K/mcL (0.0-0.2); Basophils % 0.7 %; Eosinophils # 0.3 K/mcL (0.0-0.6); Eosinophils % 3.8 %; Hematocrit 41.4 % (37.5-50.1); Hemoglobin 13.6 g/dL (12.9-16.9); Immature Granulocytes % 0.7 % (0-4); Mean Corpuscular HGB Conc 32.9 g/dL (31.6-35.5); Mean Corpuscular Hemoglobin 30.7 pg (28.0-33.3); Mean Corpuscular Volume 93.5 fL (83.0-100.0); Mean Platelet Volume 9.7 fL (9.4-12.4); Monocytes # 0.8 K/mcL (0.0-1.3); Monocytes % 9.9 %; Neutrophils # 5.2 K/mcL (1.6-8.9); Platelet Count 316 K/mcL (140-400); Red Blood Count 4.43 M/mcL (4.19-5.50); Red Cell Distribution Width 13.2 % (11.5-14.5); Segmented Neutrophils % 60.9 %
[2017-06-01 07:42] LABS: BUN/Creatinine Ratio 21 (6-26); Blood Urea Nitrogen 16 mg/dL (8-23); Calcium 8.7 mg/dL (8.6-10.3); Carbon Dioxide 26 mEq/L (23-29); Chloride 108 mEq/L (98-107); Glucose 137 mg/dL (70-105); Osmolality,Calculated 289 (280-300); Potassium 4.5 mEq/L (3.5-5.1); Sodium 138 mEq/L (136-145); eGFR For African Americans > 60 (> 60); eGFR For Non-African Americans > 60 (> 60)
[2017-06-01] MEDS: Insulin LISPRO 300 UNITS/3 ML VIAL SQ SCH ×4 (07:54→22:00)
[2017-06-01] MEDS: Aspirin 81 MG TAB.CHEW PO SCH (07:59)
[2017-06-01] MEDS: Gabapentin 400 MG CAPSULE PO SCH ×3 (07:59→17:39)
--- NOTE | 2017-06-01 08:21 | Orthopedics Progress Note ---
Date of Encounter: 06/01/17 Time of Encounter: 08:18 - Assessment and Plan (1) Abscess of skin or subcutaneous tissue Current Visit: Yes Status: Acute Qualifiers: Site of cutaneous abscess: extremity Site of cutaneous abscess of extremity : hand Laterality: left Qualified Code(s): L02.512 - Cutaneous abscess of left hand Subjective Interval history: S: Resting in bed comfortably. Mild to moderate pain to the left index finger, similar to yesterday. O: Afebrile and vital signs are stable Mild expressible purulence from the 2 I&D sites, about the same as yesterday Mild cellulitis emanating proximally into the dorsum of the hand Mild fluctuance in this area. A: Left index finger abscess with spread into the dorsal hand P: Given the persistence of purulent drainage after to bedside I&D's and persistent fluctuance and cellulitis my recommendation is to proceed to the operating room for formal incision, drainage, irrigation, and debridement. We will plan on doing this tomorrow. Nothing by mouth after midnight. Objective Vital signs: Vital Signs Temp Pulse Resp BP Pulse Ox 06/01/17 07:11 98.6 F 57 17 117/65 96 06/01/17 03:53 98.2 F 60 17 115/72 97 05/31/17 23:55 98.4 F 56 18 138/73 97 05/31/17 20:37 98.0 F 59 17 136/70 98 05/31/17 11:36 97.9 F 62 20 115/71 96 Intake and Output 05/31/17 06/01/17 06/01/17 23:59 07:59 15:59 Intake Total 1200 / 1200 300 / 300 Balance 1200 / 1200 300 / 300 Intake: IV Fluids 250 / 250 250 / 250 Vancocin 1,500 MG In Dextrose 5 250 / 250 250 / 250 % 250 ML @ 167 mls/hr IVPB Q12H ZI Rx#:[id number] Oral 950 / 950 50 / 50 Other: Meal Dinner Percent of Meal Consumed 100% # Voids 1 1 Blood Glucose* 183 132 - Labs CBC & BMP: 06/01/17 07:08 06/01/17 07:08 Labs: Abnormal lab results Chloride 108 mEq/L (98-107) H 06/01/17 07:08 Glucose 137 mg/dL (70-105) H 06/01/17 07:08 POC Glucose 183 (58-89) H 05/31/17 20:10 Hemoglobin A1c 6.4 % (-5.6) H 05/30/17 08:43 Consult Discharge Plan - Plan Referrals: Ky Cisneros MD [Primary Care Provider] -
--- NOTE | 2017-06-01 08:54 | Internal Med Progress Note ---
Date of Encounter: 06/01/17 Time of Encounter: 08:52 - Assessment and plan (1) Cellulitis Current Visit: Yes Status: Acute Assessment and plan: The patient is status post I&D twice at bedside. He continues to have purulent drainage. Cultures has grown MRSA. He remains on vancomycin. Orthopedics planning on OR drainage tomorrow. Patient is nothing by mouth at midnight. Continue with pain control. Qualifiers: Site of cellulitis: extremity Site of cellulitis of extremity: upper extremity Laterality: left Qualified Code(s): L03.114 - Cellulitis of left upper limb (2) HTN (hypertension) Current Visit: Yes Status: Chronic Assessment and plan: Blood pressure is stable. Patient is on Norvasc and lisinopril. Qualifiers: Hypertension type: essential hypertension Qualified Code(s): I10 - Essential (primary) hypertension (3) Diabetes mellitus Current Visit: Yes Status: Chronic Assessment and plan: Continue with insulin sliding scale. Continue with Accu-Cheks. Qualifiers: Diabetes mellitus type: type 2 Diabetes mellitus complication status: without complication Diabetes mellitus detention insulin use: without detention use Qualified Code(s): E11.9 - Type 2 diabetes mellitus without complications (4) DVT prophylaxis Current Visit: Yes Status: Acute Assessment and plan: Lovenox - Subjective Interval history: Patient was seen and examined. He is afebrile. He is admitted with left hand finger cellulitis. Being seen by orthopedics. He status post I and D 2. Plans for the OR tomorrow. Says pain is well-controlled. - Constitutional Vitals: Temp Pulse Resp BP Pulse Ox 98.6 F 57 17 117/65 96 06/01/17 07:11 06/01/17 07:11 06/01/17 07:11 06/01/17 07:11 06/01/17 07:11 General appearance: Present: mild distress, A&O X 3, no acute distress Exam: GEN: NAD CVS: RRR. S1, S2, No m/r/g RESP: CTAB ABD: Soft, NT, ND, +BS EXT: No edema. 2+ DP. Patient's left hand is currently wrapped. I did not expose the area today. NEURO: Nonfocal Internal Medicine: Result - Labs CBC & Chem 7: 06/01/17 07:08 06/01/17 07:08 Labs: Short CBC 06/01/17 Range/Units 07:08 WBC 8.5 (4.3-11.1) K/mcL Hgb 13.6 (12.9-16.9) g/dL Hct 41.4 (37.5-50.1) % Plt Count 316 (140-400) K/mcL Neutrophils # 5.2 (1.6-8.9) K/mcL BMP 05/31/17 06/01/17 06:51 07:08 Sodium 137 138 Potassium 4.5 4.5 Chloride 107 108 H Carbon Dioxide 26 26 BUN 18 16 Creatinine 0.75 0.75 Glucose 123 H 137 H Calcium 8.9 8.7 Consult Discharge Plan - Plan Referrals: Ky Cisneros MD [Primary Care Provider] -
[2017-06-01] MEDS ORDERED: *HR* OxyCODONE/APAP 10/325 TABLET PO SCH (12:00)
[2017-06-01] MEDS: Lisinopril 20 MG TABLET PO SCH (17:40)
[2017-06-01] MEDS: amLODIPine 5 MG TABLET PO SCH (17:40)
[2017-06-01] MEDS: Sennosides/Docusate Sodium TABLET PO SCH (19:54)
[2017-06-01] MEDS: traZODone 50 MG TABLET PO SCH (22:00)
[2017-06-02] MEDS: Vancomycin 1,500 MG in D5% in Water 250 ML IVPB SCH ×2 (01:16→14:34)
[2017-06-02] MEDS: *HR* OxyCODONE/APAP 10/325 TABLET PO PRN ×3 (01:22→18:32)
[2017-06-02] MEDS: *HR* Enoxaparin 40 MG/0.4 ML SYRINGE SQ SCH (03:23)
[2017-06-02 07:13] LABS: Basophils # 0.1 K/mcL (0.0-0.2); Basophils % 0.9 %; Eosinophils # 0.3 K/mcL (0.0-0.6); Eosinophils % 3.7 %; Hematocrit 39.5 % (37.5-50.1); Immature Granulocytes % 0.6 % (0-4); Lymphocytes # 2.5 K/mcL (0.6-4.6); Lymphocytes % 28.8 %; Mean Corpuscular HGB Conc 32.9 g/dL (31.6-35.5); Mean Corpuscular Hemoglobin 30.4 pg (28.0-33.3); Mean Corpuscular Volume 92.3 fL (83.0-100.0); Mean Platelet Volume 9.7 fL (9.4-12.4); Monocytes # 0.9 K/mcL (0.0-1.3); Monocytes % 10.9 %; Neutrophils # 4.8 K/mcL (1.6-8.9); Platelet Count 332 K/mcL (140-400); Red Blood Count 4.28 M/mcL (4.19-5.50); Red Cell Distribution Width 13.3 % (11.5-14.5); Segmented Neutrophils % 55.1 %
[2017-06-02 08:23] LABS: BUN/Creatinine Ratio 25 (6-26); Blood Urea Nitrogen 20 mg/dL (8-23); Calcium 8.5 mg/dL (8.6-10.3); Carbon Dioxide 28 mEq/L (23-29); Chloride 107 mEq/L (98-107); Glucose 136 mg/dL (70-105); Osmolality,Calculated 291 (280-300); Potassium 4.2 mEq/L (3.5-5.1); Sodium 138 mEq/L (136-145); eGFR For African Americans > 60 (> 60); eGFR For Non-African Americans > 60 (> 60)
[2017-06-02] MEDS: Gabapentin 400 MG CAPSULE PO SCH ×3 (08:28→18:32)
[2017-06-02] MEDS: Aspirin 81 MG TAB.CHEW PO SCH (08:28)
[2017-06-02] MEDS: Insulin LISPRO 300 UNITS/3 ML VIAL SQ SCH ×4 (08:28→21:38)
[2017-06-02] MEDS: Sennosides/Docusate Sodium TABLET PO SCH ×2 (08:29→21:37)
[2017-06-02] MEDS ORDERED: *HR* Propofol 200 MG/20 ML VIAL IVP ONE (08:30)
[2017-06-02] MEDS ORDERED: *HR* FentaNYL (PF) 100 MCG/2 ML VIAL ONE (08:30)
[2017-06-02] MEDS ORDERED: *HR* Succinylcholine 200 MG/10 ML VIAL IVP ONE (08:34)
[2017-06-02] MEDS ORDERED: Lidocaine -MPF 2% 2 ML VIAL ONE (08:34)
--- NOTE | 2017-06-02 09:02 | Internal Med Progress Note ---
Date of Encounter: 06/02/17 Time of Encounter: 09:01 - Assessment and plan (1) Cellulitis Current Visit: Yes Status: Acute Assessment and plan: The patient is status post I&D twice at bedside. He continues to have purulent drainage. Cultures has grown MRSA. He remains on vancomycin. Orthopedics planning on OR drainage today. Continue with pain control. Qualifiers: Site of cellulitis: extremity Site of cellulitis of extremity: upper extremity Laterality: left Qualified Code(s): L03.114 - Cellulitis of left upper limb (2) HTN (hypertension) Current Visit: Yes Status: Chronic Assessment and plan: Blood pressure is stable. Patient is on Norvasc and lisinopril. Qualifiers: Hypertension type: essential hypertension Qualified Code(s): I10 - Essential (primary) hypertension (3) Diabetes mellitus Current Visit: Yes Status: Chronic Assessment and plan: Continue with insulin sliding scale. Continue with Accu-Cheks. Qualifiers: Diabetes mellitus type: type 2 Diabetes mellitus complication status: without complication Diabetes mellitus fdc insulin use: without fdc use Qualified Code(s): E11.9 - Type 2 diabetes mellitus without complications (4) DVT prophylaxis Current Visit: Yes Status: Acute Assessment and plan: Lovenox - Subjective Interval history: Patient was seen and examined. He is afebrile. He is admitted with left hand finger cellulitis. Being seen by orthopedics. He status post I and D 2. Plans for the OR today. Says pain is well-controlled. - Constitutional Vitals: Temp Pulse Resp BP Pulse Ox 97.8 F 77 16 106/65 93 06/02/17 07:50 06/02/17 07:50 06/02/17 07:50 06/02/17 07:50 06/02/17 07:50 General appearance: Present: mild distress, A&O X 3, no acute distress Exam: GEN: NAD CVS: RRR. S1, S2, No m/r/g RESP: CTAB ABD: Soft, NT, ND, +BS EXT: No edema. 2+ DP. Patient's left hand is currently wrapped. I did not expose the area today. NEURO: Nonfocal Internal Medicine: Result - Labs CBC & Chem 7: 06/02/17 06:37 06/02/17 06:37 Labs: Short CBC 06/02/17 Range/Units 06:37 WBC 8.6 (4.3-11.1) K/mcL Hgb 13.0 (12.9-16.9) g/dL Hct 39.5 (37.5-50.1) % Plt Count 332 (140-400) K/mcL Neutrophils # 4.8 (1.6-8.9) K/mcL BMP 06/02/17 06:37 Sodium 138 Potassium 4.2 Chloride 107 Carbon Dioxide 28 BUN 20 Creatinine 0.79 Glucose 136 H Calcium 8.5 L Consult Discharge Plan - Plan Referrals: Ky Cisneros MD [Primary Care Provider] -
--- NOTE | 2017-06-02 09:16 | Anesthesia Evaluation PreOp ---
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 History: Denies Any Significant HX Other Medical History: Diabetes Type II Anesthesia History: No Prior Anesthetic Complications, Past Anesthesia Alcohol Use: occasionally Drug use: none Medications and Allergies Amlodipine Besylate 2.5 mg PO DAILY 05/29/17 [History] Enalapril Maleate [Vasotec] 20 mg PO DAILY 05/29/17 [History] Gabapentin [Neurontin] 1,200 mg PO TID 05/29/17 [History] Meloxicam [Meloxicam] 15 mg PO DAILY 05/29/17 [History] Metformin HCl [Glucophage] 1,000 mg PO BID 05/29/17 [History] OxyCODONE/APAP 10/325 [Percocet 10/325 MG] 1 tab PO Q6H PRN 05/29/17 [History] Rosuvastatin Calcium [Crestor] 10 mg PO DAILY 05/29/17 [History] Trazodone HCl 200 mg PO HS 05/29/17 [History] 3 Allergy/AdvReac Type Severity Reaction Status Date / Time No Known Allergies Allergy Verified 05/29/17 12:00 - Meds/Allergy Pre-op Review Medications Reviewed: Yes Allergies Reviewed: Yes Beta Blockers on Current Med List: No Anesthesia Results - Labs 06/02/17 06:37 06/02/17 06:37 - Imaging EKG: report reviewed (03/07/2016 SINUS RHYTHM WITH SINUS ARRHYTHMIA RIGHT BUNDLE BRANCH BLOCK [120+ ms QRS DURATION, UPRIGHT V1, 40+ ms S IN I/aVL/V4/V5/V6]) Anesthesia Exam Vital Signs/O2 Sat/Glucose, Most Recent Temp Pulse Resp BP Pulse Ox 97.8 F 77 16 106/65 93 06/02/17 07:50 06/02/17 07:50 06/02/17 07:50 06/02/17 07:50 06/02/17 07:50 Blood Glucose* 120 Height: 6'1''/1.85 m Weight: 251 lbs/113/9 kg NPO (# of Hours): 8 Pain Scale: 0 Pain Scale Used: Numeric (1 - 10) - HEENT Pupil (Motor): EOMI Mallampati: III Teeth: Edentulous Oral Opening: Greater than 3 - EAR NOSE THROAT SURGEON LOC: Oriented EAR NOSE THROAT SURGEON Motor: Normal RUE, Normal RLE, Normal Face, Deficit LUE, Deficit LLE EAR NOSE THROAT SURGEON Sensory: Normal: RUE, LUE, Face, Deficit: RLE, LLE - Cardiac Rhythm: Regular Murmur: None - Pulmonary Breath Sounds: bilateral Clear Respiratory Effort: Symmetrical Anesthesia Assess/Plan ASA Score: 3 Modified Bronson Scale for Level of Consciousness: Cooperative, oriented, and tranquil Anesthetic Plan: General Monitoring Plan: Standard Monitors Recovery Plan: PACU
--- NOTE | 2017-06-02 09:38 | Orthopedics Progress Note ---
Date of Encounter: 06/02/17 Time of Encounter: 07:30 - Assessment and Plan (1) Abscess of skin or subcutaneous tissue Current Visit: Yes Status: Acute I did discuss the diagnosis in detail the patient. He has a left index finger infection. There has been an I&D done by the emergency department. The patient is admitted and on IV antibiotics. My recommendation is to observe overnight on the IV antibiotics and if there remains any significant drainage I will extend the incision in each direction slightly and pack. Continue elevation and motion exercises. We will see tomorrow morning to reevaluate. Qualifiers: Site of cutaneous abscess: extremity Site of cutaneous abscess of extremity : hand Laterality: left Qualified Code(s): L02.512 - Cutaneous abscess of left hand Subjective Interval history: S: Resting in bed comfortably. Mild to moderate pain to the left index finger, similar to yesterday. O: Afebrile and vital signs are stable Mild expressible purulence from the 2 I&D sites, about the same as yesterday Mild cellulitis emanating proximally into the dorsum of the hand Mild fluctuance in this area. A: Left index finger abscess with spread into the dorsal hand P: Due to the persistence of grossly. Material my recommendation was to proceed to the operating room for formal irrigation and debridement. The risks discussed included but were not limited to stiffness, bleeding, infection, blood clots, damage to neurovascular structures, tendons, ligaments, and bone. Also discussed was the risk of continued symptoms and possible need for further procedures. I did discuss the anesthesia risks including stroke, heart attack, and . I did discuss the reasonable, for stable postoperative course with the patient. He did wish to proceed and consent was obtained. Objective Vital signs: Vital Signs Temp Pulse Resp BP Pulse Ox 06/02/17 07:50 97.8 F 77 16 106/65 93 06/02/17 04:00 97.7 F 71 17 101/56 95 06/01/17 20:07 97.5 F L 65 15 146/68 91 06/01/17 17:14 98.1 F 78 16 125/52 96 06/01/17 12:11 98.2 F 83 16 113/71 96 Intake and Output 06/01/17 06/02/17 06/02/17 23:59 07:59 15:59 Intake Total 0 / 0 250 / 250 Balance 0 / 0 250 / 250 Intake: IV Fluids 250 / 250 Vancocin 1,500 MG In Dextrose 5 250 / 250 % 250 ML @ 167 mls/hr IVPB Q12H ZI Rx#:[id number] Oral 0 / 0 Other: # Voids 2 Blood Glucose* 184 120 - Labs CBC & BMP: 06/02/17 06:37 06/02/17 06:37 Labs: Abnormal lab results Glucose 136 mg/dL (70-105) H 06/02/17 06:37 POC Glucose 184 (58-89) H 06/01/17 20:06 Hemoglobin A1c 6.4 % (-5.6) H 05/30/17 08:43 Calcium 8.5 mg/dL (8.6-10.3) L 06/02/17 06:37 Consult Discharge Plan - Plan Referrals: Ky Cisneros MD [Primary Care Provider] -
[2017-06-02] MEDS ORDERED: Ondansetron 4 MG/2 ML VIAL ONE (09:47)
[2017-06-02] MEDS ORDERED: Dexamethasone 4 MG/ML VIAL ONE (09:47)
[2017-06-02] MEDS ORDERED: MORPHINE SUL Oral CONC 10 MG/0.5 ML ORAL.SYG SL PRN (09:58)
[2017-06-02] MEDS ORDERED: *HR* OxyCODONE Immed Rel 5 MG TABLET PO PRN (09:58)
--- NOTE | 2017-06-02 10:51 | Anesthesia Evaluation Post Op ---
Date of Encounter: 06/02/17 Time of Encounter: 10:50 - Vital Signs Vital Signs: Selected Entries 06/02/17 10:45 Temperature 97.5 F L Pulse Rate 62 Respiratory Rate 17 Blood Pressure 115/67 O2 Sat by Pulse Oximetry 95 - Lungs Lungs: Clear Ascult./Percussion - Airway Airway: Non-obstructed - Cardiovascular Regular Rate - Mental Status Mental Status: Alert & Oriented, Answers Appropriately - Pain Pain Scale: 1 Pain Scale used: Numeric (1 - 10) - Nausea Vomiting Nausea Vomiting: Not Present - Hydration Hydration: Ice chips, Has not voided - Discharge PostOp Status: Transfer Patient to floor
[2017-06-02] MEDS: Lisinopril 20 MG TABLET PO SCH (18:31)
[2017-06-02] MEDS: amLODIPine 5 MG TABLET PO SCH (18:32)
--- NOTE | 2017-06-02 19:55 | Orthopedic Operative Note ---
Date of procedure: 06/02/17 Procedure: OPERATIVE REPORT DATE OF PROCEDURE: 06/02/2017 SURGEON: Sampson Martel MD SAGGER MAKER(S): There were no assistants PREOPERATIVE DIAGNOSIS: Left hand infection and index finger infection POSTOPERATIVE DIAGNOSIS: Left hand infection and index finger infection PROCEDURE: Incision, drainage, irrigation, debridement of left dorsal hand and index finger infection ANESTHESIA: General anesthesia PREOPERATIVE ANTIBIOTICS: Receiving vancomycin from the floor ESTIMATED BLOOD LOSS: 2 milliliters TOURNIQUET TIME: 6 minutes at 250 mmHg SPECIMENS: Swabs of the dorsum of the hand LOCAL INJECTION: 0.5% bupivacaine with 1:200,000 epinephrine; 6 mL used in total PREOPERATIVE NOTE AND INDICATIONS: This patient is a 72-year-old male with a left dorsal hand and index finger infection which failed to improve significantly after to bedside I&D's. Recommendation was to proceed with the above procedure due to persistence of infection. The surgical plan was discussed with the patient. The risks, benefits, alternatives, and potential complications of this procedure were discussed with the patient including injury to veins, arteries, nerves, tendons, ligaments, and bone. Also discussed were the risks of infection, bleeding, pain, blood clots, the possible need for a blood transfusion, the possible need for further procedures, heart attack, stroke, and . All of this was explained in simple terms, and the patient verbalized understanding and wished to proceed. Consent was given to proceed with surgery. PROCEDURE: The patient was seen in the preoperative holding area where the identify and the consent were confirmed. The left hand was marked. Final questions were answered. The patient was brought back to the operating room and placed supine on the operating room table. A huddle was performed with the patient and all vital surgical team members confirming patient identity, the correct procedure, and the correct operative site. General anesthesia was administered. The left upper extremity was prepped and draped in the usual sterile fashion. A surgical time out was performed immediately preceding the incision with all personnel in the operating room to confirm patient identity, the correct operative site and extremity, correct radiographic studies, availability of appropriate surgical equipment, and agreement on the planned procedure. The tourniquet was inflated without exsanguination. The dorsal hand I&D site was extended distally and the dorsal index finger I&D site was extended proximally. A 2 cm skin bridge was left. Using a hemostat the subcutaneous tissue was spread open and there are small amounts of residual purulent material. This was debrided copiously with irrigation and sharply with the scalpel. The wound was flushed with copious amounts of saline and once all devitalized tissue was debrided and a final irrigation was performed and a single stitch was placed in the dorsal hand incision distally but allowing drainage. A [place] drain was placed bridging the 2 I&D sites. A soft, sterile dressing was applied. The tourniquet was deflated. The instrument, sponge, and needle counts were correct after wound closure. POST OPERATIVE PLAN: Weight Bearing: Weightbearing as tolerated to left upper extremity. DVT Prophylaxis: Ambulation Activity: Motion exercises to reduce the risk of stiffness. Wound Care: Daily dressing changes Perioperative antibiotic prophylaxis: And continue vancomycin Was there an equal opportunity assistant present: No Estimated blood loss (cc): 2
[2017-06-02] MEDS: traZODone 50 MG TABLET PO SCH (23:02)
[2017-06-03] MEDS: Vancomycin 1,500 MG in D5% in Water 250 ML IVPB SCH ×2 (03:07→15:35)
[2017-06-03] MEDS: *HR* Enoxaparin 40 MG/0.4 ML SYRINGE SQ SCH (06:15)
--- NOTE | 2017-06-03 07:27 | Orthopedics Progress Note ---
Date of Encounter: 06/03/17 Time of Encounter: 07:25 - Assessment and Plan (1) Abscess of skin or subcutaneous tissue Current Visit: Yes Status: Acute I did discuss the diagnosis in detail the patient. He has a left index finger infection. There has been an I&D done by the emergency department. The patient is admitted and on IV antibiotics. My recommendation is to observe overnight on the IV antibiotics and if there remains any significant drainage I will extend the incision in each direction slightly and pack. Continue elevation and motion exercises. We will see tomorrow morning to reevaluate. Qualifiers: Site of cutaneous abscess: extremity Site of cutaneous abscess of extremity : hand Laterality: left Qualified Code(s): L02.512 - Cutaneous abscess of left hand Subjective Interval history: S: Resting in bed comfortably. Expected pain to the left hand. O: Afebrile and vital signs are stable No purulent drainage. The Ohlman drain is intact Cellulitis has improved He can grossly flex and extend the digits The fingertips are all grossly sensate and well-perfused, and the radial artery pulse is 2+. A: Postoperative I&D of the left hand and dorsal index finger P: At this point there is no further purulent drainage. The cellulitis is improving. My tecommendation is for 1 more day of IV antibiotics followed by removal of the [place] drain. I anticipate switching to oral antibiotics tomorrow. Continue elevation and motion exercises to reduce the risk of stiffness. Objective Vital signs: Vital Signs Temp Pulse Resp BP Pulse Ox 06/02/17 23:53 98.2 F 81 18 120/70 98 06/02/17 20:25 98.4 F 84 18 128/73 98 06/02/17 20:00 98 06/02/17 17:15 99.0 F 73 16 127/77 95 06/02/17 11:18 97.6 F 62 12 128/67 96 06/02/17 10:45 97.5 F L 62 17 115/67 95 06/02/17 10:35 63 13 113/64 95 06/02/17 10:25 61 14 114/60 94 06/02/17 10:15 97.8 F 97 12 111/79 95 06/02/17 07:50 97.8 F 77 16 106/65 93 Intake and Output 06/02/17 06/02/17 06/03/17 15:59 23:59 07:59 Intake Total 250 / 250 590 / 590 Output Total Balance 249 / 249 590 / 590 Intake: IV Fluids 250 / 250 250 / 250 Vancocin 1,500 MG In Dextrose 5 250 / 250 250 / 250 % 250 ML @ 167 mls/hr IVPB Q12H [facility] Rx#:[id number] Oral 340 / 340 Output: Estimated Blood Loss Other: Stool Size Moderate Stool Consistency formed Stool Characteristics Normal for Patient Stool Color Brown # Voids 1 Blood Glucose* 163 241 - Labs CBC & BMP: 06/02/17 06:37 06/02/17 06:37 Labs: Abnormal lab results Glucose 136 mg/dL (70-105) H 06/02/17 06:37 POC Glucose 241 (58-89) H 06/02/17 20:48 Hemoglobin A1c 6.4 % (-5.6) H 05/30/17 08:43 Calcium 8.5 mg/dL (8.6-10.3) L 06/02/17 06:37 - VTE Documentation of Mechanical Device: Venous foot pump, device Consult Discharge Plan - Plan Referrals: Ky Cisneros MD [Primary Care Provider] -
[2017-06-03] MEDS: Sennosides/Docusate Sodium TABLET PO SCH ×2 (07:49→21:19)
[2017-06-03] MEDS: Gabapentin 400 MG CAPSULE PO SCH ×3 (07:49→17:25)
[2017-06-03] MEDS: Aspirin 81 MG TAB.CHEW PO SCH (07:49)
[2017-06-03] MEDS: Insulin LISPRO 300 UNITS/3 ML VIAL SQ SCH ×4 (07:56→21:19)
--- NOTE | 2017-06-03 08:00 | Internal Med Progress Note ---
Date of Encounter: 06/03/17 Time of Encounter: 07:58 - Assessment and plan (1) Cellulitis Current Visit: Yes Status: Acute Assessment and plan: Improvement The patient is status post I&D twice at bedside and therefore yesterday by orthopedics. Drainage today. Cultures has grown MRSA. He remains on vancomycin. Orthopedics Would like to have another day of IV antibiotics today before discharge tomorrow. Continue with pain control. Qualifiers: Site of cellulitis: extremity Site of cellulitis of extremity: upper extremity Laterality: left Qualified Code(s): L03.114 - Cellulitis of left upper limb (2) HTN (hypertension) Current Visit: Yes Status: Chronic Assessment and plan: Blood pressure is stable. Patient is on Norvasc and lisinopril. Qualifiers: Hypertension type: essential hypertension Qualified Code(s): I10 - Essential (primary) hypertension (3) Diabetes mellitus Current Visit: Yes Status: Chronic Assessment and plan: Continue with insulin sliding scale. Continue with Accu-Cheks. Qualifiers: Diabetes mellitus type: type 2 Diabetes mellitus complication status: without complication Diabetes mellitus nursing home insulin use: without nursing home use Qualified Code(s): E11.9 - Type 2 diabetes mellitus without complications (4) DVT prophylaxis Current Visit: Yes Status: Acute Assessment and plan: Lovenox - Subjective Interval history: Patient was seen and examined. He is afebrile. He is admitted with left hand finger cellulitis. Being seen by orthopedics. He went for further drainage in the OR yesterday. He status post I and D 2 before that. Says pain is well- controlled. - Constitutional Vitals: Temp Pulse Resp BP Pulse Ox 98.4 F 73 16 126/74 99 06/03/17 06:28 06/03/17 06:28 06/03/17 06:28 06/03/17 06:28 06/03/17 06:28 General appearance: Present: mild distress, A&O X 3, no acute distress Exam: GEN: NAD CVS: RRR. S1, S2, No m/r/g RESP: CTAB ABD: Soft, NT, ND, +BS EXT: left hand wiht no purulent drainage. anjum drain in place and intact. No edema. 2+ DP. NEURO: Nonfoca Internal Medicine: Result - Labs CBC & Chem 7: 06/02/17 06:37 06/02/17 06:37 Labs: [facility] 06/02/17 06:37 Sodium 138 Potassium 4.2 Chloride 107 Carbon Dioxide 28 BUN 20 Creatinine 0.79 Glucose 136 H Calcium 8.5 L - VTE Documentation of Mechanical Device: Venous foot pump, device Consult Discharge Plan - Plan Referrals: Ky Cisneros MD [Primary Care Provider] -
[2017-06-03] MEDS: *HR* OxyCODONE/APAP 10/325 TABLET PO PRN ×3 (08:02→21:29)
[2017-06-03 08:06] LABS: Basophils # 0.1 K/mcL (0.0-0.2); Basophils % 0.6 %; Eosinophils # 0.2 K/mcL (0.0-0.6); Eosinophils % 1.4 %; Hemoglobin 14.5 g/dL (12.9-16.9); Immature Granulocytes % 0.6 % (0-4); Lymphocytes # 2.9 K/mcL (0.6-4.6); Lymphocytes % 23.7 %; Mean Corpuscular HGB Conc 32.2 g/dL (31.6-35.5); Mean Platelet Volume 9.5 fL (9.4-12.4); Monocytes # 0.9 K/mcL (0.0-1.3); Monocytes % 7.1 %; Platelet Count 387 K/mcL (140-400); Red Blood Count 4.84 M/mcL (4.19-5.50); Red Cell Distribution Width 13.1 % (11.5-14.5); Segmented Neutrophils % 66.6 %
[2017-06-03 08:09] LABS: BUN/Creatinine Ratio 19 (6-26); Blood Urea Nitrogen 15 mg/dL (8-23); Carbon Dioxide 27 mEq/L (23-29); Chloride 105 mEq/L (98-107); Glucose 176 mg/dL (70-105); Magnesium 2.2 mg/dL (1.6-2.6); Osmolality,Calculated 289 (280-300); Potassium 4.4 mEq/L (3.5-5.1); Sodium 137 mEq/L (136-145); eGFR For African Americans > 60 (> 60); eGFR For Non-African Americans > 60 (> 60)
--- NOTE | 2017-06-03 17:09 | Electrocardiograph Report ---
[address] [address] Test Date: 2017-06-02 Pat Name: Sampson Barton Department: 101 Room: [facility] Gender: M Art Class Model: KIRSTIN : 1945 Requested By: Mike Joshua Order Number: [id number] Reading MD: Andre King Measurements Intervals [place] Rate: 66 P: 42 NC: 168 QRS: 60 QRSD: 146 T: 34 QT: 417 QTc: 431 Interpretive Statements SINUS RHYTHM RIGHT BUNDLE BRANCH BLOCK Electronically Signed On 06-03-2017 17:08:01 EST by Andre King
[2017-06-03] MEDS: amLODIPine 5 MG TABLET PO SCH (17:24)
[2017-06-03] MEDS: Lisinopril 20 MG TABLET PO SCH (17:25)
[2017-06-03] MEDS: traZODone 50 MG TABLET PO SCH (22:14)
[2017-06-04] MEDS: Vancomycin 1,500 MG in D5% in Water 250 ML IVPB SCH ×2 (05:32→14:15)
[2017-06-04] MEDS: *HR* OxyCODONE/APAP 10/325 TABLET PO PRN ×2 (05:33→12:22)
[2017-06-04] MEDS: *HR* Enoxaparin 40 MG/0.4 ML SYRINGE SQ SCH (05:35)
[2017-06-04 07:29] LABS: BUN/Creatinine Ratio 25 (6-26); Blood Urea Nitrogen 20 mg/dL (8-23); Calcium 8.7 mg/dL (8.6-10.3); Carbon Dioxide 26 mEq/L (23-29); Chloride 105 mEq/L (98-107); Glucose 183 mg/dL (70-105); Osmolality,Calculated 287 (280-300); Potassium 4.3 mEq/L (3.5-5.1); Sodium 135 mEq/L (136-145); eGFR For African Americans > 60 (> 60); eGFR For Non-African Americans > 60 (> 60)
--- NOTE | 2017-06-04 07:35 | Discharge Summary ---
Date of Encounter: 06/04/17 Time of Encounter: 07:33 - Discharge Diagnosis (1) Cellulitis Priority: Primary Status: Acute Qualifiers: Site of cellulitis: extremity Site of cellulitis of extremity: upper extremity Laterality: left Qualified Code(s): L03.114 - Cellulitis of left upper limb (2) HTN (hypertension) Priority: Secondary Status: Chronic Qualifiers: Hypertension type: essential hypertension Qualified Code(s): I10 - Essential (primary) hypertension (3) Diabetes mellitus Priority: Secondary Status: Chronic Qualifiers: Diabetes mellitus type: type 2 Diabetes mellitus complication status: without complication Diabetes mellitus terminal superintendent insulin use: without terminal superintendent use Qualified Code(s): E11.9 - Type 2 diabetes mellitus without complications - Discharge Medications Prescriptions: OxyCODONE/APAP 10/325 [Percocet 10/325 MG] 1 tab PO Q6H PRN 2 Days #8 tablet PRN Reason: Pain Sulfamethoxazole/Trimeth SS [Bactrim SS] 1 each PO BID 7 Days #14 tablet Home Medications: Amlodipine Besylate 2.5 mg PO DAILY 05/29/17 [History] Enalapril Maleate [Vasotec] 20 mg PO DAILY 05/29/17 [History] Gabapentin [Neurontin] 1,200 mg PO TID 05/29/17 [History] Meloxicam 15 mg PO DAILY 05/29/17 [History] Metformin HCl [Glucophage] 1,000 mg PO BID 05/29/17 [History] Rosuvastatin Calcium [Crestor] 10 mg PO DAILY 05/29/17 [History] Trazodone HCl 200 mg PO HS 05/29/17 [History] OxyCODONE/APAP 10/325 [Percocet 10/325 MG] 1 tab PO Q6H PRN 2 Days #8 tablet 06/20 [Rx] Sulfamethoxazole/Trimeth SS [Bactrim SS] 1 each PO BID 7 Days #14 tablet [Rx] Allergies/Adverse Reactions: 3 Allergy/AdvReac Type Severity Reaction Status Date / Time No Known Allergies Allergy Verified 05/29/17 12:00 Procedures/tests Complete & Pending: Procedures Performed prior 72 hours Category Date Time Status ECG 12 lead ECG [ECG] Routine Y 06/02/17 10:33 Completed Date of admission: 05/29/17 14:52 Primary care physician: Ky Cisneros MD Consults: 05/31/17 14:07 Consult to Last [place]yer [CONS] Routine Reason for SW Consult: IV Zyvox home ATB - Patient Status Disposition: Home, Self-Care Overall status at discharge: patient is progressing back to baseline - Discharge Instructions Follow Up With: Ky Cisnerso MD [Primary Care Provider] - Sampson Martel MD [Partnered Physician] - (2 weeks) - Diet and Activity Activity: increase activity as tolerated Diet: low salt diet Hospital course: Mr. Barton is a 72 year old male with DM, HTN, HLD, Tobacco abuse who presented to the ER with Left hand and finger redness and swelling, symptoms started 5 days ago and has not responded to outpatient Keflex and Bactrim., symptoms continued to worsen, prompting presentation to the ER. The patient states that he was bitten by a spider. In the emergency department the patient underwent a small I&D of the left index finger. He was admitted to the hospitalist service with consult orthopedics who also performed another I&D at bedside. Cultures from both times grew MRSA. The patient continued to have purulent drainage. He ended up taken to the OR for incision and drainage and irrigation and debridement of the left dorsal hand and index finger. Cultures from that were negative. He was initially on IV vancomycin. At day of discharge he was switched to Bactrim to finish a course of 10 more days. He was stable for discharge on 06/04/2017. He will follow-up with orthopedics and his PCP. - Time Spent with Patient Total time spent providing and/or coordinating discharge services: Greater than 30 minutes - Constitutional Vitals: Temp Pulse Resp BP Pulse Ox 98.4 F 84 18 138/78 94 06/03/17 19:29 06/03/17 19:29 06/03/17 19:29 06/03/17 19:29 06/03/17 19:29 General appearance: Present: mild distress, A&O X 3, no acute distress Exam: GEN: NAD CVS: RRR. S1, S2, No m/r/g RESP: CTAB ABD: Soft, NT, ND, +BS EXT: left hand wiht no purulent drainage. anjum drain in place and intact. No edema. 2+ DP. NEURO: Nonfoca - VTE Documentation of Mechanical Device: Venous foot pump, device
[2017-06-04 07:59] LABS: Basophils # 0.1 K/mcL (0.0-0.2); Basophils % 0.7 %; Eosinophils # 0.3 K/mcL (0.0-0.6); Eosinophils % 3.9 %; Hematocrit 41.2 % (37.5-50.1); Hemoglobin 13.2 g/dL (12.9-16.9); Immature Granulocytes % 0.5 % (0-4); Lymphocytes # 2.6 K/mcL (0.6-4.6); Lymphocytes % 28.9 %; Mean Corpuscular Hemoglobin 29.9 pg (28.0-33.3); Mean Corpuscular Volume 93.2 fL (83.0-100.0); Mean Platelet Volume 9.8 fL (9.4-12.4); Monocytes # 0.8 K/mcL (0.0-1.3); Monocytes % 8.5 %; Neutrophils # 5.1 K/mcL (1.6-8.9); Platelet Count 360 K/mcL (140-400); Red Blood Count 4.42 M/mcL (4.19-5.50); Red Cell Distribution Width 13.2 % (11.5-14.5); Segmented Neutrophils % 57.5 %
[2017-06-04] MEDS: Aspirin 81 MG TAB.CHEW PO SCH (08:23)
[2017-06-04] MEDS: Gabapentin 400 MG CAPSULE PO SCH ×2 (08:23→12:21)
[2017-06-04] MEDS: Insulin LISPRO 300 UNITS/3 ML VIAL SQ SCH ×2 (08:23→12:21)
[2017-06-04] MEDS: Sennosides/Docusate Sodium TABLET PO SCH (08:23)
--- NOTE | 2017-06-04 15:06 | Orthopedics Progress Note ---
Date of Encounter: 06/04/17 Time of Encounter: 15:04 - Assessment and Plan (1) Abscess of skin or subcutaneous tissue Current Visit: Yes Status: Acute Qualifiers: Site of cutaneous abscess: extremity Site of cutaneous abscess of extremity : hand Laterality: left Qualified Code(s): L02.512 - Cutaneous abscess of left hand Subjective Interval history: S: Resting in bed comfortably. Expected pain to the left hand. O: Afebrile and vital signs are stable No purulent drainage. The Preston drain pulled Cellulitis essentially resolved He can grossly flex and extend the digits The fingertips are all grossly sensate and well-perfused, and the radial artery pulse is 2+. A: Postoperative I&D of the left hand and dorsal index finger P: Wound looks good. Preston pulled. My recommendation at this point his daily dressing changes with warm soapy soaks. I did discuss this with the patient. Follow-up with me in the office in one week for clinical reevaluation or sooner if needed. He will call the office sooner for any new or worsening concerns before then. Objective Vital signs: Vital Signs Temp Pulse Resp BP Pulse Ox 06/04/17 12:09 98.0 F 59 16 114/66 97 06/03/17 19:29 98.4 F 84 18 138/78 94 Intake and Output 06/03/17 06/04/17 06/04/17 23:59 07:59 15:59 Intake Total 730 / 730 Balance 730 / 730 Intake: IV Fluids 250 / 250 Vancocin 1,500 MG In Dextrose 5 250 / 250 % 250 ML @ 167 mls/hr IVPB Q12H [facility] Rx#:[id number] Oral 480 / 480 Other: # Voids 1 Blood Glucose* 170 223 - Labs CBC & BMP: 06/04/17 06:49 06/04/17 06:49 Labs: Abnormal lab results Sodium 135 mEq/L (136-145) L 06/04/17 06:49 Glucose 183 mg/dL (70-105) H 06/04/17 06:49 POC Glucose 170 (58-89) H 06/03/17 20:27 Hemoglobin A1c 6.4 % (-5.6) H 05/30/17 08:43 - VTE Documentation of Mechanical Device: Venous foot pump, device Consult Discharge Plan - Plan Additional Instructions: Follow-up appointments: If there is not an appointment listed below, please call your physician and schedule a follow-up appointment. If you have congestive heart failure and your symptoms return, make an appointment with your physician. Medication List: Carry an up to date list of medications you are taking at all time. We have given you an updated medication list including any new medications that you have been prescribed. Please provide that list to your primary provider Symptoms: If your condition changes or you experience any of the following symptoms, notify your physician immediately: Unusual or worsening pain, fever, persistent nausea and vomiting, bleeding, increase in swelling (especially in your legs), sudden weight gain, extreme dizziness, chest pain, increased drainage or redness from a wound or incision. Go to the emergency department if you experience a problem with breathing. Weights: If you have a history of swelling or shortness of breath, weigh yourself daily and notify your physician if you have a weight gain of two or more pounds in one day or 5 or more pounds in a week. If you experience any of the warning signs for stroke: Sudden numbness or weakness of the face, arm or leg; especially on one side of the body, sudden confusion, trouble speaking or understanding, sudden trouble seeing in one or both eyes, sudden trouble walking, dizziness, loss of balance or coordination, sudden sever headache with no cause; Call 911 or go to the emergency room. Stroke is a medical emergency. Some risk factors for stroke: Age, cigarette smoking, diabetes, excessive alcohol consumption, family history , high blood pressure, overweight, physical inactivity, prior stroke, heart attack, diagnosis of carotid artery stenosis or other artery disease. If you smoke, STOP: Smoking or tobacco use significantly increases your risk of heart and lung disease. Your chance of disease greatly increases if you continue to smoke. For more information, call the [place] tobacco quit line for smoking cessation 3- QUIT-NOW ( ) Referrals: Ky Cisneros MD [Primary Care Provider] - Sampson Martel MD [Partnered Physician] - 06/17/17 1:50 pm (2 weeks) Prescriptions: OxyCODONE/APAP 10/325 [Percocet 10/325 MG] 1 tab PO Q6H PRN 2 Days #8 tablet PRN Reason: Pain Sulfamethoxazole/Trimeth SS [Bactrim SS] 1 each PO BID 7 Days #14 tablet
[2017-06-04 16:34] VITALS: BP 114/66
[2017-06-04] MEDS ORDERED: Aminoglycoside Consult 1 EACH MC ONE (17:13)
== END 2017-06-04 17:14 | disposition home or self-care (01) | DRG 580 ==
LOC: EMEROO 11:58 → 3NENU 14:52
PROVIDERS: ADMIT Internal Medicine; ATTEND Internal Medicine